=== PATIENT | male | born 1945 | race Two or more races ===

== ENCOUNTER 2018-01-25 10:19 | Inpatient (IN) | payer OTHER ==
[~2018-01-25] VITALS: Ht 167.6 cm; Wt 90.7 kg
[2018-01-31] MEDS ORDERED: SINGULAIR10 MG PO (13:58)
[2018-01-31] MEDS ORDERED: OXYCODONE HCL E40 MG PO (13:58)
[2018-01-31] MEDS ORDERED: LOSARTAN POTASS50 MG PO (13:58)
[2018-01-31] MEDS ORDERED: ALPRAZOLAM2 MG PO (13:59)
[2018-01-31] MEDS ORDERED: AMITIZA8 MCG PO (13:59)
[2018-01-31] MEDS ORDERED: GABAPENTIN400 MG PO (14:00)
[2018-02-03] MEDS ORDERED: AMOX-CLAV 875-1 EACH PO (14:44)
[2018-02-03] MEDS ORDERED: DOCUSATE SODIU100 MG PO (14:44)
[2018-02-03] MEDS ORDERED: GABAPENTIN800 MG PO (14:44)
[2018-02-03] MEDS ORDERED: PERCOCET 5-3251 EACH PO (14:44)
[2018-02-03] MEDS ORDERED: XANAX2 MG PO (14:44)
== END 2018-02-04 18:55 | disposition home or self-care (01) | DRG 455 ==
LOC: SURH 02-03 06:34 → O/R 02-03 06:34 → SURH 02-03 09:45
PROVIDERS: Orthopaedic Surgery Orthopaedic Surgery of the Spine
PROC: 0SG1071 Fusion of 2 or more Lumbar Vertebral Joints with Autologous Tissue Substitute, Posterior Approach, Posterior Column, Open Approach (ICD-10-PCS; 2018-02-03)
PROC: 0ST40ZZ Resection of Lumbosacral Disc, Open Approach (ICD-10-PCS; 2018-02-03)
PROC: 0SG30AJ Fusion of Lumbosacral Joint with Interbody Fusion Device, Posterior Approach, Anterior Column, Open Approach (ICD-10-PCS; 2018-02-03)
PROC: 07DS3ZZ Extraction of Vertebral Bone Marrow, Percutaneous Approach (ICD-10-PCS; 2018-02-03)
PROC: 0SG30A0 Fusion of Lumbosacral Joint with Interbody Fusion Device, Anterior Approach, Anterior Column, Open Approach (ICD-10-PCS; principal; 2018-02-03 09:45)
DX: M48.062 Spinal stenosis, lumbar region with neurogenic claudication (principal); M51.36 Other intervertebral disc degeneration, lumbar region; M41.86 Other forms of scoliosis, lumbar region; I10 Essential (primary) hypertension